=== PATIENT | female | born 1965 | race Caucasian/White ===

== ENCOUNTER 2023-06-16 18:16 | Emergency (ER) | payer OTHER, SELFPAY ==
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
[2023-06-16 18:25] VITALS: BP 138/94; PULSE 77; RESP 15; TEMP 36.7; O2SAT 100
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
[2023-06-16] MEDS: IBUPROFEN 600 MG TABLET PO (19:37)
== END 2023-06-16 20:41 | disposition home or self-care (01) ==
PROVIDERS: Emergency Provider Physician Assistant
DX: S09.90XA Unspecified injury of head, initial encounter (principal); S16.1XXA Strain of muscle, fascia and tendon at neck level, initial encounter; S49.91XA Unspecified injury of right shoulder and upper arm, initial encounter; M47.812 Spondylosis without myelopathy or radiculopathy, cervical region; M75.31 Calcific tendinitis of right shoulder; V49.50XA Passenger injured in collision with unspecified motor vehicles in traffic accident, initial encounter
CPT/HCPCS: 70450; 72125; 73030; 99284; A9270

== ENCOUNTER 2024-02-09 09:59 | Outpatient (CLI) | payer OTHER, SELFPAY ==
--- NOTE | ~2024-02-09 | XR_ITS ---
Left Knee Technique: AP and lateral views were obtained. Clinical History: Pain Findings: No fracture or dislocation is seen. Osseous alignment is anatomic. Minimal medial joint hector e spurring noted. Soft tissues are unremarkable. No joint effusion is seen. Impression: Minimal medial joint line spurring. Reviewed, dictated and finalized at location . Impression: Minimal medial joint line spurring.
--- NOTE | ~2024-02-09 | XR_ITS ---
Right Knee Technique: AP and lateral views were obtained. Clinical History: Pain Findings: No fracture or dislocation is seen. Osseous alignment is anatomic. Joint spaces are preserv ed without degenerative or erosive change. Soft tissues are unremarkable. No joint effusion is seen. Impression: Unremarkable right knee radiographs. Reviewed, dictated and finalized at location . Impression: Unremarkable right knee radiographs.
== END 2024-02-09 10:00 | disposition home or self-care (01) ==
LOC: ANHIMG 10:04
DX: M25.762 Osteophyte, left knee (principal); G89.29 Other chronic pain; M25.561 Pain in right knee
CPT/HCPCS: 73560